=== PATIENT | female | born 1955 | race Caucasian/White ===

== ENCOUNTER 2020-07-28 13:16 | Outpatient (CLI) | payer BC, SELFPAY | END 2020-07-28 13:17 | disposition home or self-care (01) | LOC: ANHCOVIDVC 13:16 | PROVIDERS: PCP Internal Medicine | DX: Z23 Encounter for immunization (principal) | CPT/HCPCS: 0001A; 91300 ==

== ENCOUNTER 2020-08-09 07:08 | Outpatient (CLI) | payer BC, SELFPAY ==
[2020-08-09 07:58] LABS: Carbon Dioxide 30 mmol/L (22-30); Chloride 106 mmol/L (98-107); Potassium 4.2 mmol/L (3.4-5.0); Sodium 141 mmol/L (137-145)
[2020-08-09 07:59] LABS: Alanine Aminotransferase 23 U/L (4-35); Albumin Level 4.4 g/dL (3.5-5.1); Alkaline Phosphatase 74 U/L (38-126); Anion Gap 5 mmol/L (8-16); Aspartate Amino Transferase 32 U/L (14-36); Bilirubin,Total 0.5 mg/dL (0.2-1.3); Blood Urea Nitrogen 17 mg/dL (7-17); Calcium 9.5 mg/dL (8.4-10.2); Cholesterol 204 mg/dL (0-200); Estimated Glomerular Filt Rate > 60; Glucose 124 mg/dL (65-105); HDL Direct 56 mg/dL; Triglycerides 89 mg/dL (<150)
[2020-08-09 08:09] LABS: LDL Cholesterol Direct 123 mg/dL
[2020-08-09 09:20] LABS: Basophils Percent Auto 0.4 % (0.2-1.2); Eosinophils Absolute Auto 0.1 K/mm3 (0-0.3); Eosinophils Percent Auto 0.7 % (0-4.4); Hematocrit 47.5 % (37.0-47.0); Hemoglobin 16.1 g/dL (12.0-15.0); Immature Granulocyte Absolute 0.03 K/mm3 (0.00-0.031); Immature Granulocyte Percent A 0.4 % (0-0.5); Lymphocytes Absolute Auto 1.98 K/mm3 (0.9-3.2); Lymphocytes Percent Auto 23.6 % (18.3-44.2); Mean Corpuscular HGB Conc 33.9 g/dl (32-36); Mean Corpuscular Hemoglobin 31.6 pg (26-34); Mean Corpuscular Volume 93.1 fl (80-100); Mean Platelet Volume 10.9 fl (7.4-10.4); Monocytes Absolute Auto 0.7 K/mm3 (0.1-0.6); Neutrophils Absolute Auto 5.6 K/mm3 (1.3-6.7); Neutrophils Percent Auto 66.9 % (45.5-73.1); Platelet Count Result 197 k/mm3 (150-375); Red Cell Distribution Width 12.8 % (11.5-14.5); White Blood Count 8.4 K/mm3 (4.5-10.0)
[2020-08-09 09:53] LABS: Erythrocyte Sedimentation Rate 5 mm/hr (0-20)
== END 2020-08-09 07:09 | disposition home or self-care (01) ==
PROVIDERS: PCP Family Medicine; Visit Provider Family Medicine
DX: L40.9 Psoriasis, unspecified (principal); E03.9 Hypothyroidism, unspecified; I10 Essential (primary) hypertension; E78.5 Hyperlipidemia, unspecified
CPT/HCPCS: 36415; 80053; 80061; 84443; 85025; 85652

== ENCOUNTER 2020-08-18 13:46 | Outpatient (CLI) | payer BC, SELFPAY | END 2020-08-18 13:47 | disposition home or self-care (01) | LOC: ANHCOVIDVC 13:46 | PROVIDERS: PCP Family Medicine | DX: Z23 Encounter for immunization (principal) | CPT/HCPCS: 0002A; 91300 ==

== ENCOUNTER 2020-08-21 07:35 | Outpatient (CLI) | payer BC, SELFPAY ==
--- NOTE | ~2020-08-21 | CT_ITS ---
EXAMINATION: CT abdomen pelvis w con INDICATION: Abnormal weight loss TECHNIQUE: Computed tomographic images of the abdomen and pelvis were obtained after the administrati on of 100 cc of Omnipaque 350 intravenous contrast. The dose-length product (DLP) was 163.11 mGy-cm. Automated exposure control and iterative reconstruction technique were employed. COMPARISON: None available FINDINGS: Minimal dependent atelectasis is present in the lung bases. The heart size is normal. The l iver, spleen, pancreas, gallbladder, and adrenal glands are normal. The right kidney is unremarkable. A 3 mm low-attenuation lesion of the left kidney is too small to characterize but likely represents a cyst. No pathologically enlarged abdominal or pelvic lymph nodes are identified. There is no free i ntraperitoneal gas or evidence of bowel obstruction. The appendix is normal. There appear to be multi ple fibroids in the uterus. There are bilateral L5 pars defects with grade 1 anterolisthesis of L5 on S1. IMPRESSION: 1. No CT correlate for the patient's symptoms. Reviewed, dictated and finalized at location B.
== END 2020-08-21 07:36 | disposition home or self-care (01) ==
PROVIDERS: PCP Family Medicine; Visit Provider Family Medicine
DX: R63.4 Abnormal weight loss (principal); R19.00 Intra-abdominal and pelvic swelling, mass and lump, unspecified site
CPT/HCPCS: 74177; Q9967

== ENCOUNTER → 2020-08-26 01:00 | Outpatient (CLI) | payer BC, SELFPAY ==
[2020-08-26 19:44] LABS: SARS-CoV-2 RNA PCR Negative
== END ==
PROVIDERS: PCP Family Medicine; Visit Provider Internal Medicine Gastroenterology
DX: Z01.812 Encounter for preprocedural laboratory examination (principal); Z20.822 Contact with and (suspected) exposure to COVID-19
CPT/HCPCS: C9803; U0003; U0005

== ENCOUNTER 2020-08-30 02:32 | Day surgery (SDC) | payer BC, SELFPAY ==
[2020-08-17 15:39] VITALS: BMI 16.7
[2020-08-30 07:17] VITALS: BP 129/71; PULSE 55; RESP 20; TEMP 36.9; O2SAT 99
[2020-08-30] MEDS: LACTATED RINGERS 1,000 ML 150 ML IV CONT (07:30)
--- NOTE | 2020-08-30 07:45 | P.HP_ITS ---
History of Present Illness History of Present Illness Consent: Risks, benefits, and alternatives have been discussed and questions answered. Patient agrees to proceed with procedure. Chief complaint: epigastric pain Narrative: Janeth Caldwell is a 65 year old female who has been troubled by epigastric discomfort. It is basically a full sensation rather than a pain. At times, when eating or drinking, it will feel as though it goes down slowly. Her weight is stable. She has had some nausea lately as well Review of Systems Review of Systems: All systems reviewed & are unremarkable except as noted in HPI and below PMFSH Past Medical History Medical History Breast implant rupture History of marijuana use History of tobacco abuse Surgical History Surgical History H/O breast augmentation Family History Family History (Updated 08/08/20 @ 14:56 by Estela Berry) Father Alcohol abuse Diabetes mellitus Other Malignant neoplasm of prostate Social History Social History Social History: Smoking status: Current every day smoker Tobacco type: e-cigarettes/vaping Second hand tobacco smoke exposure: No Alcohol intake: never Substance use: current Substance use type: marijuana Last use: MONTH Living arrangements: with family Gender identity (if verbalized by the patient): Female Spiritual care concerns: No Meds Home Medications and Allergies Home Medications Medication Instructions Recorded Confirmed Type Tumeric 500 mg PO DAILY 08/17/20 08/17/20 History aspirin [Adult Aspirin EC Low 81 mg PO DAILY 08/17/20 08/17/20 History Strength] ergocalciferol (vitamin D2) 50,000 unit PO WEEKLY 08/17/20 08/17/20 History [Vitamin D2] omega 3-awo-eew-fish oil [Collins 3 1 cap PO DAILY 08/17/20 08/17/20 History Fish Oil] vitamin B complex 1 cap PO DAILY 08/17/20 08/17/20 History Allergies Allergy/AdvReac Type Severity Reaction Status Date / Time No Known Allergies Allergy Verified 08/30/20 07:15 Vital Signs Vital Signs - 24 hr 08/30/20 07:17 Temperature 36.9 C Pulse Rate 55 L Respiratory Rate 20 Blood Pressure 129/71 Pulse Oximetry 99 Exam Const: General: alert Orientation/consciousness: patient oriented x3 Resp: Auscultation: clear to auscultation bilaterally Cardio: Rhythm: regular rhythm GI: GI Palp: Yes Soft to palpation and No Tenderness to palpation present (GI) Neuro: General: patient oriented x3 Assessment and Plan Assessment and plan (1) Epigastric abdominal pain: Code(s): R10.13 - Epigastric pain Status: Acute Assessment and Plan: EGD with possible biopsy or dilatation or cautery.
--- NOTE | 2020-08-30 08:01 | WPDANESEPPF ---
Anes - Initial Pre Proc Eval Procedure: Operation Date: 08/30/20 08:30 Proposed Procedures p Esophagogastroduodenoscopy - Jere Mcmanus MD Date/Time: 08/30/20 08:01 Surgeon: Jere Mcmanus MD Pre Op Diagnosis: epigastric pain Patient Data Age: 65 Gender: F Height: 5 ft 6 in Weight: 46.7 kg Last Vital Signs Temp 98.4 F 08/30/20 07:17 Pulse 55 L 08/30/20 07:17 Resp 20 08/30/20 07:17 BP 129/71 08/30/20 07:17 Pulse Ox 99 08/30/20 07:17 Allergies Allergy/AdvReac Type Severity Reaction Status Date / Time No Known Allergies Allergy Verified 08/30/20 07:15 Home Medications Medication Instructions Recorded Confirmed Type Tumeric 500 mg PO DAILY 08/17/20 08/17/20 History aspirin [Adult Aspirin EC Low 81 mg PO DAILY 08/17/20 08/17/20 History Strength] ergocalciferol (vitamin D2) 50,000 unit PO WEEKLY 08/17/20 08/17/20 History [Vitamin D2] omega 2-sew-zqr-fish oil [Claridge 3 1 cap PO DAILY 08/17/20 08/17/20 History Fish Oil] vitamin B complex 1 cap PO DAILY 08/17/20 08/17/20 History Patient hx anesthesia problems: none Family hx anesthesia problems: none PMFSH Past Medical History Medical History Breast implant rupture History of marijuana use History of tobacco abuse Surgical History Surgical History H/O breast augmentation Family History Family History (Updated 08/08/20 @ 14:56 by Estela Berry) Father Alcohol abuse Diabetes mellitus Other Malignant neoplasm of prostate Social History Social History Social History: Smoking status: Current every day smoker Tobacco type: e-cigarettes/vaping Second hand tobacco smoke exposure: No Alcohol intake: never Substance use: current Substance use type: marijuana Last use: MONTH Living arrangements: with family Gender identity (if verbalized by the patient): Female Spiritual care concerns: No Anes - Eval Final PreProcedure Day of Procedure 08/30/20 08:01 Patient weight: normal Heart: regular rate and rhythm Lungs: clear to auscultation Airway: Mallampati scale class II Neurological: alert and oriented Last oral intake: >/= 8 hours ASA classification: II Emergent: no Anesthetic plan: proceed Anesthesia type and monitoring: general GIVS and standard monitoring Informed Consent: The patient's anesthetic plan and its attendant risks and benefits were discussed with the patient/family/POA. Questions were solicited and answers provided to the satisfaction of the patient/family/POA.
[2020-08-30 08:48] VITALS: BP 111/67; PULSE 51; RESP 16; O2SAT 100
[2020-08-30 08:58] VITALS: BP 104/64; PULSE 49; RESP 18; O2SAT 100
[2020-08-30 09:08] VITALS: BP 135/77; PULSE 52; RESP 19
== END 2020-08-30 09:31 | disposition home or self-care (01) ==
PROVIDERS: PCP Family Medicine; Visit Provider Internal Medicine Gastroenterology
PROC: 0DJ08ZZ Inspection of Upper Intestinal Tract, Via Natural or Artificial Opening Endoscopic (ICD-10-PCS; CPT 43235; principal; 2020-08-30 08:30)
DX: K29.50 Unspecified chronic gastritis without bleeding (principal); F17.290 Nicotine dependence, other tobacco product, uncomplicated; F12.90 Cannabis use, unspecified, uncomplicated; Z79.82 Long term (current) use of aspirin
CPT/HCPCS: 43239; 87081; 88305; J2704; J7120

== ENCOUNTER 2020-09-13 08:55 | Outpatient (CLI) | payer BC, SELFPAY ==
[2020-09-13 10:00] LABS: Anion Gap 3 mmol/L (8-16); Blood Urea Nitrogen 19 mg/dL (7-17); Calcium 9.9 mg/dL (8.4-10.2); Carbon Dioxide 34 mmol/L (22-30); Chloride 105 mmol/L (98-107); Estimated Glomerular Filt Rate > 60; Glucose 104 mg/dL (65-105); Potassium 4.1 mmol/L (3.4-5.0); Sodium 142 mmol/L (137-145)
== END 2020-09-13 08:56 | disposition home or self-care (01) ==
PROVIDERS: PCP Family Medicine; Visit Provider Family Medicine
DX: R73.09 Other abnormal glucose (principal)
CPT/HCPCS: 36415; 80048; 83036

== ENCOUNTER → 2022-01-11 14:44 | Outpatient (CLI) | payer BC, SELFPAY ==
--- NOTE | ~2022-01-11 | MM_ITS ---
EXAMINATION: MM scrn melissa implant BI w stefano HISTORY: Screening mammogram TECHNIQUE: Craniocaudal and mediolateral oblique 3-D tomosynthesis images with implant displacement a nd synthetic 2-D images were generated. Craniocaudal and mediolateral oblique views of the breasts wi thout implant displacement were obtained using full field digital mammography. CAD analysis was submi tted and interpreted. COMPARISON: 11/05/2018, 07/05/2013 BREAST PARENCHYMAL COMPOSITION: There are scattered areas of fibroglandular density. FINDINGS: There is no evidence of suspicious mass, calcification, or architectural distortion to sugg est malignancy in either breast. There has been no suspicious interval change. IMPRESSION: 1. No mammographic evidence of malignancy. 2. Recommend routine screening mammography in one year. BI-RADS Category 1: Negative Reviewed, dictated and finalized at location A.
== END ==
PROVIDERS: PCP Family Medicine; Visit Provider Family Medicine
DX: Z12.31 Encounter for screening mammogram for malignant neoplasm of breast (principal)
CPT/HCPCS: 77063; 77067

== ENCOUNTER → 2022-07-10 09:06 | Outpatient (CLI) | payer MEDICARE, SELFPAY ==
--- NOTE | ~2022-07-10 | XR_ITS ---
Thoracic spine: Clinical Indication: Back pain AP and lateral views were performed. No fracture is seen. There is normal alignment of the vertebrae. The intervertebral disc spaces appe ar normal. Paravertebral soft tissues appear normal. Impression: No significant abnormalities noted. Reviewed, dictated and finalized at [facility]. TICS NURSE Impression: No significant abnormalities noted.
--- NOTE | ~2022-07-10 | XR_ITS ---
Cervical Spine: AP, lateral, open-mouth views Clinical History: Pain Findings: The normal lordotic curve is maintained. There is moderate degenerative disc narrowing at C 5-C6 and C6-C7. No fracture or subluxation seen. There is facet arthropathy at C2-C3, C3-C4, and C4-C 5. Pre-vertebral soft tissues are unremarkable. Impression: No fracture or sublocation. Degenerative spondylosis, as detailed above. Reviewed, dictated and finalized at location . MAIN FITTER Impression: No fracture or sublocation. Degenerative spondylosis, as detailed above.
--- NOTE | ~2022-07-10 | XR_ITS ---
Lumbosacral Spine: AP, oblique, and lateral views Clinical History: Pain Findings: The normal lordotic curve is maintained. Possible bilateral L5 pars interarticularis defect s. Anterolisthesis of L5 over S1 measures approximately 12 mm. No acute fracture evident. There is fa cet arthropathy from L3 through S1. There is mild degenerative disc change L5-S1. Remaining disc spac es are preserved. The sacroiliac joints are normally outlined. Impression: 12 mm anterolisthesis of L5 over S1. Possible underlying L5 pars interarticularis defects. Facet arthropathy, as detailed above. Reviewed, dictated and finalized at location M. OYEE REPRESENTATIVE Impression: 12 mm anterolisthesis of L5 over S1. Possible underlying L5 pars interarticular is defects. Facet arthropathy, as detailed above.
--- NOTE | ~2022-07-10 | XR_ITS ---
AP and lateral views of the bilateral hip Clinical history: Pain Findings: No acute fracture or dislocation is seen. Osseous alignment is anatomic. Bilateral hip and SI joint spaces are preserved. Soft tissues are unremarkable. Impression: No significant abnormality is seen. Reviewed, dictated and finalized at location M. RGROUND TRUCK OPERATOR Impression: No significant abnormality is seen.
== END ==
PROVIDERS: PCP Family Medicine; Visit Provider Nurse Practitioner Gerontology
DX: M47.817 Spondylosis without myelopathy or radiculopathy, lumbosacral region (principal); M47.812 Spondylosis without myelopathy or radiculopathy, cervical region; M54.9 Dorsalgia, unspecified; M25.559 Pain in unspecified hip
CPT/HCPCS: 72050; 72072; 72110; 73521

== ENCOUNTER 2022-07-17 14:31 | Outpatient (CLI) | payer MEDICARE, SELFPAY ==
--- NOTE | ~2022-07-17 | MR_ITS ---
MRI of the lumbar spine Clinical History: Back pain Technique: Axial T2-weighted images, and sagittal T1-weighted, T2-weighted, and T2 fat-sat images wer e acquired. Findings: There are bilateral L5 pars interarticularis defects, with associated 1 cm anterolisthesis of L5 over S1. There is degenerative disc narrowing at L5-S1 with reactive marrow signal changes abou t the disc space. No other bone marrow signal abnormality seen. No other fracture or subluxation iden tified. At L1-L2, there is no disc bulge or herniation. No spinal canal stenosis or neural foraminal narrowin g. L2-L3, there is mild disc bulge, especially the left foraminal and left paracentral region. There is minimal facet arthropathy. No spinal canal stenosis or neural foraminal narrowing. At L3-L4, there is mild facet arthropathy. No spinal canal stenosis or neural foraminal narrowing. At L4-L5, there is minimal disc bulge with facet arthropathy. No spinal canal stenosis or neural fora roland narrowing. At L5-S1, disc bulge/uncovering is present with mild facet arthropathy. No dylan spinal canal stenosi s. There is severe bilateral neural foraminal narrowing. Paravertebral soft tissues are unremarkable. Impression: Bilateral L5 pars interarticularis defects with 1 cm anterolisthesis of L5 over S1. Severe bilateral neural foraminal narrowing at L5-S1. Reviewed, dictated and finalized at [facility]. CER Impression: Bilateral L5 pars interarticularis defects with 1 cm anterolisthesis of L5 over S1. Severe bilateral neural foraminal narrowing at L5-S1.
== END 2022-07-17 14:32 | disposition home or self-care (01) ==
PROVIDERS: PCP Family Medicine; Visit Provider Nurse Practitioner Gerontology
DX: M54.9 Dorsalgia, unspecified (principal)
CPT/HCPCS: 72148

== ENCOUNTER → 2022-12-09 08:13 | Outpatient (CLI) | payer MEDICARE, SELFPAY ==
--- NOTE | ~2022-12-09 | MMUS_ITS ---
EXAMINATION: MM diag melissa implant LT w stefano, US breast LT limited HISTORY: Left breast pain, 11:00 near nipple TECHNIQUE: ML, MLO and CC implant displaced 3-D tomosynthesis images of the left breast were performe d and synthetic 2-D images were generated. Implant ML, MLO and CC views. CAD analysis was submitted a nd interpreted. High resolution targeted left breast ultrasound at area of clinical complaint was per formed. COMPARISON: 01/11/2022, 11/05/2018 bilateral implant mammogram examinations BREAST PARENCHYMAL COMPOSITION: There are scattered areas of fibroglandular density. FINDINGS: MAMMOGRAPHIC FINDINGS: Status post left augmentation mammoplasty. No suspicious mass, architectural distortion, malignant calcification, skin thickening or retraction of the left breast is detected. ULTRASOUND: Targeted ultrasound at area of clinical complaint at 9:00 2.5 cm from the nipple reveals no suspiciou s mass or shadowing, cyst or other significant abnormality. IMPRESSION: 1. No mammographic or sonographic evidence of malignancy 2. Routine annual mammographic screening is recommended BI-RADS Category 1: Negative Reviewed, dictated and finalized at location A. IMPRESSION: 1. No mammographic or sonographic evidence of malignancy 2. Routine annual mammographic screening is recommended BI-RADS Category 1: Negative
== END ==
PROVIDERS: PCP Family Medicine; Visit Provider Obstetrics & Gynecology
DX: N64.4 Mastodynia (principal)
CPT/HCPCS: 76642; 77061; 77065; G0279

== ENCOUNTER → 2023-05-30 10:56 | Outpatient (CLI) | payer MEDICARE, SELFPAY ==
--- NOTE | ~2023-05-30 | DEXA_ITS ---
Bone Density Report Name: PEEWEE MENDOZA Age: 68 Sex: Female Ethnicity: White Date of : 1955 Indication: postmenopausal; screening for osteoporosis; height loss; Referring Provider: KEVIN PEOPLES Study: Bone densitometry was performed. Exam Date: May 30, 2023 Accession number: [id number] Bone Density: Region BMD T-score Z-score Classification AP Spine (L1-L4) 0.760 -2.6 -0.8 Osteoporosis Femoral Neck (Left) 0.663 -1.7 -0.1 Osteopenia Total Hip (Left) 0.836 -0.9 0.4 Normal Femoral Neck (Right) 0.621 -2.0 -0.5 Osteopenia Total Hip (Right) 0.831 -0.9 0.4 Normal Total Hip Mean 0.834 -0.9 0.4 Normal World Health Organization criteria for BMD impression classify patients as: Normal (T-score at or above -1.0), Osteopenia (T-score between -1.0 and -2.5), or Osteoporosis (T-score at or below -2.5). 10-year Fracture Risk: FRAX not reported because: Some T-score for Spine Total or Hip Total or Femoral Neck at or below -2.5 Clinical Information Provided by Patient: Patient maximum height was 65.5 Menopause Age: 52 Onset of menses at age 18 Number of children 2 Impression: The patient has osteoporosis, based on the Total Spine T-score. Discussion: INCREASED RISK OF FRACTURE. BONE DENSITY IS UNDESIRABLY LOW AT ONE OR MORE SKELETAL SITES, CONSISTENT WITH POSTMENOPAUSAL OSTEOPOROSIS. This patient's lowest T-score meets the World Health Organization's (WHO) criteria for osteoporosis at one or more sites (T-score -2.5 or below). In untreated patients, the risk of osteoporotic fracture increases approximately two-fold for each 1.0 SD decrease in T-score. Low bone density is not the only risk factor for fracture; also consider factors such as patient's age, frailty or poor health, risk of falling, risk of injury, previous osteoporotic fracture, family history of osteoporosis, cigarette smoking, low body weight, etc. Not everyone with low bone mineral density has osteoporosis; osteomalacia and other metabolic bone disorders should also be considered. Patients who have osteoporosis should be evaluated for specific diseases and conditions (secondary causes) that may cause or contribute to bone loss. The [place] Association of Clinical Endocrinologists (AACE) and National Osteoporosis Foundation (NOF) recommend pharmacologic intervention for all postmenopausal women whose T-score is in this range. The patient should follow a healthful lifestyle (good nutrition with adequate calcium and vitamin D, and appropriate weight-bearing exercise). Follow-Up: Consider a repeat BMD and Vertebral Fracture Assessment (VFA) exam in 2 years or sooner if medically necessary, to reassess this patient's status. Reported by: ROME on 05/30/2023 11:25:00 AM. Reviewed, dictated a
== END ==
PROVIDERS: PCP Physician Assistant; Visit Provider Physician Assistant
DX: M81.0 Age-related osteoporosis without current pathological fracture (principal); Z78.0 Asymptomatic menopausal state
CPT/HCPCS: 77080

== ENCOUNTER → 2023-05-31 10:42 | Outpatient (CLI) | payer MEDICARE, SELFPAY ==
--- NOTE | ~2023-05-31 | MR_ITS ---
MRI of the cervical spine Clinical History: Radiculopathy Technique: Axial T2-weighted and gradient images, and sagittal T1-weighted, T2-weighted, and STIR freddie ges were acquired. Findings: There is no fracture or subluxation of the cervical spine. Vertebral bodies maintain normal height and alignment. No bone marrow signal abnormality seen. At C2-C3, there is no disc bulge or herniation. No spinal canal stenosis, cord compression, or neural foraminal narrowing. At C3-C4, there is no disc bulge or herniation. No spinal canal stenosis, cord compression, or neural foraminal narrowing. There is left facet arthropathy. At C4-C5, there is minimal disc osteophyte complex with mild bilateral facet arthropathy. Probable mi nimal bilateral neural foraminal narrowing. No central canal stenosis or cord compression. At C5-C6, there is mild to moderate degenerative disc narrowing. No significant disc bulge. There is mild facet joint degenerative change. No spinal canal stenosis, cord compression, or definite neural foraminal narrowing. At C6-C7, there is moderate to advanced degenerative disc 9. There is mild disc osteophyte complex, w ith mild canal stenosis but no dylan cord compression. There is mild bilateral neural foraminal narro wing. Paravertebral soft tissues are unremarkable. No abnormal signal seen in the spinal cord. Impression: Mild degenerative spondylosis overall, as detailed above. Reviewed, dictated and finalized at [facility]. BODY PAINTER Impression: Mild degenerative spondylosis overall, as detailed above.
== END ==
PROVIDERS: PCP Nurse Practitioner Family; Visit Provider Nurse Practitioner Family
DX: M47.22 Other spondylosis with radiculopathy, cervical region (principal)
CPT/HCPCS: 72141

== ENCOUNTER → 2023-07-07 11:45 | Outpatient (CLI) | payer MEDICARE, SELFPAY ==
--- NOTE | ~2023-07-07 | XR_ITS ---
EXAMINATION: XR shoulder LT min 2V DATE: 07/07/2023 12:11 INDICATION: Left shoulder pain. TECHNIQUE: 4 views of left shoulder were obtained. COMPARISON: None. FINDINGS: Bone alignment is normal. No fracture. There is mild osteoarthritis of glenohumeral joint a nd severe osteoarthritis of acromioclavicular joint. IMPRESSION: 1. Polyarticular osteoarthritis. Reviewed, dictated and finalized at location A. ORT SERVICES COORDINATOR
--- NOTE | ~2023-07-07 | XR_ITS ---
EXAMINATION: XR shoulder RT min 2V DATE: 07/07/2023 12:11 INDICATION: Right shoulder pain. TECHNIQUE: 4 views of right shoulder were obtained. COMPARISON: None. FINDINGS: Bone alignment is normal. No fracture. There is mild osteoarthritis of glenohumeral joint. There is moderate acromioclavicular joint osteoarthritis. IMPRESSION: 1. Polyarticular osteoarthritis. Reviewed, dictated and finalized at location A. NG INSTRUCTOR
== END ==
PROVIDERS: PCP Family Medicine; Visit Provider Nurse Practitioner Family
DX: M19.011 Primary osteoarthritis, right shoulder (principal); M19.012 Primary osteoarthritis, left shoulder
CPT/HCPCS: 73030

== ENCOUNTER 2023-07-30 11:36 | Outpatient (CLI) | payer MEDICARE, SELFPAY ==
--- NOTE | ~2023-07-30 | XR_ITS ---
Clinical Indication: Dyspnea PA and lateral views of the chest: Comparison: 03/01/2017 Findings: The lungs are clear, without evidence of focal consolidation or pleural effusion. Cardiome diastinal silhouette is within normal limits. Bones and soft tissues are unremarkable. Impression: Normal chest. Reviewed, dictated and finalized at location . Impression: Normal chest.
== END 2023-07-30 11:37 ==
PROVIDERS: PCP Physician Assistant; Visit Provider Physician Assistant
DX: R06.00 Dyspnea, unspecified (principal)
CPT/HCPCS: 71046

== ENCOUNTER 2023-08-05 10:13 | Outpatient (CLI) | payer MEDICARE, SELFPAY ==
--- NOTE | ~2023-08-05 | CT_ITS ---
EXAMINATION: CT BRAIN W/O DATE: 08/05/2023 10:36 INDICATION: Lack of coordination. TECHNIQUE: Computed tomography (CT) of the head was performed without intravenous contrast. The dose- length product was 605.33 mGy-cm. Automated exposure control and iterative reconstruction technique w ere employed. COMPARISON: No prior studies for comparison. FINDINGS: Normal brain parenchymal volume for age. Normal ramirez-white differentiation. No acute intrac ranial hemorrhage, infarction, mass or mass effect. No ventriculomegaly or midline shift. Midline sagittal images demonstrate a normal corpus callosum, c raniovertebral junction and sella turcica. Basilar cisterns are patent. Paranasal sinuses and mastoids are pneumatized. No depressed skull fractures. IMPRESSION: 1. No acute intracranial abnormality. Reviewed, dictated and finalized at location L.
== END 2023-08-05 10:14 | disposition home or self-care (01) ==
PROVIDERS: PCP Physician Assistant; Visit Provider Physician Assistant
DX: R27.8 Other lack of coordination (principal); R25.1 Tremor, unspecified
CPT/HCPCS: 70450

== ENCOUNTER 2023-08-20 08:31 | Emergency (ER) | payer MEDICARE, SELFPAY ==
[2023-08-20 08:32] VITALS: BP 142/92; PULSE 76; RESP 18; TEMP 36.5; O2SAT 99
[2023-08-20 09:10] VITALS: BP 142/79; PULSE 60; RESP 18; O2SAT 97
[2023-08-20] MEDS: BELLADONNA ALK/PHENOB ELIX 10 ML, MAG HYDROX/ALUMINUM HYD/SIMETH 30 ML, LIDOCAINE HCL 2... PO (09:10)
[2023-08-20 09:17] LABS: Basophils Percent Auto 0.2 % (0.2-1.2); Eosinophils Percent Auto 0.2 % (0-4.4); Hematocrit 44.3 % (37.0-47.0); Hemoglobin 15.3 g/dL (12.0-15.0); Immature Granulocyte Absolute 0.03 K/mm3 (0.00-0.031); Immature Granulocyte Percent A 0.3 % (0-0.5); Lymphocytes Absolute Auto 1.87 K/mm3 (0.9-3.2); Lymphocytes Percent Auto 19.8 % (18.3-44.2); Mean Corpuscular HGB Conc 34.5 g/dl (32-36); Mean Corpuscular Hemoglobin 31.9 pg (26-34); Mean Corpuscular Volume 92.5 fl (80-100); Mean Platelet Volume 9.3 fl (7.4-10.4); Monocytes Absolute Auto 0.8 K/mm3 (0.1-0.6); Monocytes Percent Auto 8.9 % (2.6-8.5); Neutrophils Absolute Auto 6.7 K/mm3 (1.3-6.7); Neutrophils Percent Auto 70.6 % (45.5-73.1); Platelet Count Result 231 k/mm3 (150-375); Red Blood Count 4.79 M/mm3 (4.2-5.4); White Blood Count 9.4 K/mm3 (4.5-10.0)
[2023-08-20 09:55] LABS: Alanine Aminotransferase 22 U/L (6-35); Alkaline Phosphatase 71 U/L (38-126); Anion Gap 4 mmol/L (4-12); Aspartate Amino Transferase 29 U/L (14-36); Bilirubin,Total 0.8 mg/dL (0.2-1.3); Blood Urea Nitrogen 16 mg/dL (7-17); Calcium 10.8 mg/dL (8.4-10.2); Carbon Dioxide 28 mmol/L (22-30); Chloride 107 mmol/L (98-107); Estimated CRCL calculation 56 ml/min; Estimated Glomerular Filt Rate > 60; Glucose 121 mg/dL (65-110); Lipase 48 U/L (23-300); Potassium 3.3 mmol/L (3.4-5.0); Sodium 139 mmol/L (137-145)
--- NOTE | 2023-08-20 10:22 | ED.GENADULT ---
HPI - General Adult General Chief complaint: Nausea/Vomiting/Diarrhea Stated complaint: N/V, dizzy Time Seen by Provider: 08/20/23 08:44 History of Present Illness HPI narrative: Patient is a 68-year-old female who presents ER with upset stomach. Reports she started Augmentin last night. She has been having discomfort in the epigastrium as well as some nausea. She reports she was diagnosed with sinusitis and gets occasional dizziness. No distress at this time. No fevers chills or sweats. No history of pancreatitis. No diarrhea. She did take the medication with food. She has tried some Tums which did help. Patient was also started on a PPI. Related Data Home Medications Medication Instructions Recorded Confirmed aspirin 81 mg tablet,delayed 81 mg PO DAILY 08/17/20 08/18/23 release Allergies Allergy/AdvReac Type Severity Reaction Status Date / Time No Known Allergies Allergy Verified 08/20/23 09:10 [facility] Past Medical History Medical History Breast cancer screening Breast implant rupture Complete tear of right rotator cuff Dyspepsia Elevated glucose Epigastric abdominal pain Establishing care with new doctor, encounter for History of marijuana use History of tobacco abuse Neck pain Pulsatile abdominal mass Shakiness Tremor Weight loss Surgical History Surgical History H/O breast augmentation Family History Family History Father Alcohol abuse Diabetes mellitus Other Malignant neoplasm of prostate Social History Social History Social History: Smoking status: Smoker, status unknown Tobacco type: e-cigarettes/vaping Second hand tobacco smoke exposure: No Alcohol intake: never Substance use: current Substance use type: marijuana Last use: MONTH Do You Feel Safe in your Home?: Yes Lack of Transportation: No Lack of Food: Never True Current Housing: I Have Housing Concerned About Future Housing: No Difficulty Paying Gas/Electric Bills: No Difficulty Paying for Meds: No Currently Unemployed: No Education: Don't Know Difficulty w/ Childcare or Family Care: No Living arrangements: with family Occupation/Education: occupation Gender identity (if verbalized by the patient): Female Sexual Orientation (if Verbalized by the Patient): Straight or Heterosexual Spiritual care concerns: No Exam Narrative: GENERAL: Well-appearing, well-nourished, and in no acute distress. HEAD: Normocephalic, atraumatic. ENT: Mucous membranes moist. TMs normal bilaterally. NECK: Supple. CHEST: Clear to auscultation. No respiratory distress. HEART: Regular rate and rhythm. Normal peripheral pulses. ABDOMEN: Soft, nontender, nondistended. EXTREMITIES: Normal range of motion. No edema. SKIN: Warm, dry, no rash. NEURO: Alert and oriented x3. PSYCH: Normal mood and affect. Course Course Emergency Course: Patient given a GI cocktail with improvement. Lab work unremarkable. Discharge with antiemetics to use as needed. Vital Signs Vital signs: Vital Signs Temperature 97.7 F 08/20/23 08:32 Pulse Rate 76 08/20/23 08:32 Respiratory Rate 18 08/20/23 08:32 Blood Pressure 142/92 H 08/20/23 08:32 Pulse Oximetry 99 08/20/23 08:32 Oxygen Delivery Room Air 08/20/23 08:32 Temperature 97.7 F 08/20/23 08:32 Pulse Rate 60 08/20/23 09:10 Respiratory Rate 18 08/20/23 09:10 Blood Pressure 142/79 H 08/20/23 09:10 Pulse Oximetry 97 08/20/23 09:10 Oxygen Delivery Room Air 08/20/23 08:32 Medical Decision Making Vital Signs Vital Signs: Vital Signs Temperature 97.7 F 08/20/23 08:32 Pulse Rate 76 08/20/23 08:32 Respiratory Rate 18 08/20/23 08:32 Blood Pressure 142/92 H 08/20/23 08:32 Puls
[2023-08-20 11:31] VITALS: BP 130/67; PULSE 61; RESP 17; O2SAT 98
== END 2023-08-20 11:33 | disposition home or self-care (01) ==
PROVIDERS: Emergency Provider Emergency Medicine; PCP Family Medicine
DX: K29.70 Gastritis, unspecified, without bleeding (principal); R11.2 Nausea with vomiting, unspecified; T36.0X5A Adverse effect of penicillins, initial encounter; T36.1X5A Adverse effect of cephalosporins and other beta-lactam antibiotics, initial encounter; F17.290 Nicotine dependence, other tobacco product, uncomplicated; Z79.82 Long term (current) use of aspirin
CPT/HCPCS: 36415; 80053; 83690; 85025; 99283; A9270